=== PATIENT | female | born 1965 | race Caucasian/White ===

== ENCOUNTER 2023-02-18 09:26 | Emergency (ER) | payer OTHER, SELFPAY ==
[2023-02-18 09:36] VITALS: BP 128/92; PULSE 85; RESP 20; TEMP 36.6; O2SAT 98
--- NOTE | 2023-02-18 09:50 | ED.FEMALEGU ---
HPI - Female Genitourinary General Chief complaint: Urogenital-Female Stated complaint: Lower back pain left side History of Present Illness HPI Narrative: Patient presents with a 3 week history of burning with urination low back pain patient denies any gross hematuria no flank pain no suprapubic pain patient states her symptoms have been on off for the past 3 weeks. Related Data Allergies Allergy/AdvReac Type Severity Reaction Status Date / Time OPIATES Allergy Itching Uncoded 02/18/23 09:39 Review of Systems Review of Systems: CONSTITUTIONAL: Denies fever, chills, or sweats. EYES: Denies visual changes, redness, or discharge. ENT: Denies rhinorrhea, congestion, sore throat, or otalgia. CARDIOVASCULAR: Denies chest pain, palpitations, or edema. RESPIRATORY: Denies cough or dyspnea. GASTROINTESTINAL: Denies abdominal pain, nausea, vomiting, or diarrhea. GENITOURINARY: Denies dysuria or hematuria. SKIN: Denies rash or itching. MUSCULOSKELETAL: Denies back pain, joint pain, or myalgia. NEUROLOGIC: Denies headache, numbness, or weakness. PSYCHIATRIC: Denies anxiety or depression. PMFSH Comments At time of signature, agree with nursing past medical, surgical, social and family history. There is no relevant family history pertinent to the presenting complaint Exam Narrative: GENERAL: Well-appearing, well-nourished, and in no acute distress. HEAD: Normocephalic, atraumatic. EYES: PERRLA and EOMI. ENT: Nares clear, no rhinorrhea or epistaxis. Mucous membranes moist. NECK: Supple. CHEST: Clear to auscultation. No respiratory distress. HEART: Regular rate and rhythm. No murmur heard. Normal peripheral pulses. ABDOMEN: Soft, nontender, nondistended, normal active bowel sounds. EXTREMITIES: Normal range of motion. No edema. SKIN: Warm, dry, no rash. NEURO: No focal deficits. Alert and oriented x3. [place] Coma Scale Eye Opening: Spontaneous 4 Joy Coma Scale Motor: Obeys Commands 6 Joy Coma Scale Verbal: Oriented 5 Joy Coma Scale Total 15 Course Course Level of Care: Express Care Visit Vital Signs Vital signs: Vital Signs Temperature 36.6 C 02/18/23 09:36 Pulse Rate 85 02/18/23 09:36 Respiratory Rate 20 02/18/23 09:36 Blood Pressure 128/92 H 07/17/23 09:36 Pulse Oximetry 98 02/18/23 09:36 Oxygen Delivery Room Air 02/18/23 09:36 Temperature 36.6 C 02/18/23 09:36 Pulse Rate 85 02/18/23 09:36 Respiratory Rate 20 02/18/23 09:36 Blood Pressure 128/92 H 02/18/23 09:36 Pulse Oximetry 98 02/18/23 09:36 Oxygen Delivery Room Air 02/18/23 09:36 Will start patient on cephalexin instructed to do any fluids avoid caffeine and carbonated beverages will culture urine and antibiotic needs to be changed will call with results [facility] - Female Genitourinary Differential Diagnosis Differential diagnosis: Likely urinary tract infection, bacterial vaginosis, trichomoniasis, cervicitis, ovarian cyst and vaginitis Lab Data Labs: Urine Glucose Negative Reference Range: Negative Urine Bilirubin Negative Reference Range: Negative Urine Ketone Negative Reference Range: Negative Urine Specific [place] 1.010 Reference Range:1.001-1.035 Urine Blood Trace Reference Range: Negative * * Urine pH 5.5 Reference Range: 5.0-9.0 Urine Protein Negative Reference Range: Negative Urine Urobilinogen 0.2 Reference Range:
== END 2023-02-18 09:57 | disposition home or self-care (01) ==
PROVIDERS: Emergency Provider Nurse Practitioner Family
DX: N39.0 Urinary tract infection, site not specified (principal)
CPT/HCPCS: 81003; 87086; 99213; G0463